=== PATIENT | female | born 1985 | race Caucasian/White ===

== ENCOUNTER 2016-07-12 14:52 | Emergency (ER) | payer MEDICAID | END 2016-07-12 17:05 | disposition home or self-care (01) | LOC: D.ER 14:52 | DX: H60.501 Unspecified acute noninfective otitis externa, right ear (principal); F41.9 Anxiety disorder, unspecified ==

== ENCOUNTER 2016-11-08 09:27 | Emergency (ER) | payer MEDICAID | END 2016-11-08 10:47 | disposition home or self-care (01) | LOC: D.ER 09:27 | DX: K04.7 Periapical abscess without sinus (principal); K02.9 Dental caries, unspecified; K08.89 Other specified disorders of teeth and supporting structures; F17.200 Nicotine dependence, unspecified, uncomplicated ==

== ENCOUNTER 2017-01-19 11:36 | Emergency (ER) | payer MEDICAID | END 2017-01-19 12:56 | disposition home or self-care (01) | LOC: D.ER 11:36 | DX: K04.7 Periapical abscess without sinus (principal); K08.89 Other specified disorders of teeth and supporting structures; F17.200 Nicotine dependence, unspecified, uncomplicated; R51 Headache ==

== ENCOUNTER 2017-06-13 15:30 | Emergency (ER) | payer MEDICAID | END 2017-06-13 16:42 | disposition home or self-care (01) | LOC: D.ER 15:30 | DX: K04.7 Periapical abscess without sinus (principal); K08.89 Other specified disorders of teeth and supporting structures; F17.200 Nicotine dependence, unspecified, uncomplicated ==

== ENCOUNTER 2018-01-29 14:48 | Emergency (ER) | payer MEDICAID ==
[~2018-01-29] VITALS: Ht 162.6 cm; Wt 100.0 kg
[2018-01-29 14:52] VITALS: Ht 162.6 cm; Wt 100.0 kg
[2018-01-29] MEDS ORDERED: PENICILLIN V P500 MG PO (15:29)
[2018-01-29] MEDS ORDERED: ULTRAM50 MG PO (15:31)
[2018-01-29 16:56] VITALS: BP 116/70
== END 2018-01-29 16:56 | disposition home or self-care (01) ==
LOC: D.ER 14:48
DX: K04.7 Periapical abscess without sinus (principal); K08.89 Other specified disorders of teeth and supporting structures; F17.200 Nicotine dependence, unspecified, uncomplicated

== ENCOUNTER 2018-02-01 08:54 | Emergency (ER) | payer MEDICAID ==
[~2018-02-01] VITALS: Ht 162.6 cm; Wt 102.3 kg
[~2018-02-01 08:54] MED LIST: PENICILLIN V P500 MG PO; ULTRAM50 MG PO
[2018-02-01 08:58] VITALS: Ht 162.6 cm; Wt 102.3 kg
[2018-02-01 09:21] LABS: APPEARANCE HAZY (CLEAR); BILIRUBIN NEGATIVE (NEGATIVE); COLOR YELLOW (YELLOW); GLUCOSE NEGATIVE (NEGATIVE); KETONE NEGATIVE (NEGATIVE); NITRITE NEGATIVE (NEGATIVE); PROTEIN NEGATIVE (NEGATIVE); SPECIFIC GRAVITY 1.025 (1.005-1.020); UROBILINOGEN NORMAL (NORMAL)
[2018-02-01 09:23] LABS: BACTERIA MODERATE /hpf (NONE SEEN); EPITHELIAL CELLS 0-5 /hpf (0-5); MUCUS >1+ /lpf (NONE SEEN); RED CELLS - URINE 0-5 /hpf (0-5); UDS - AMPHET NEGATIVE QUAL (NEGATIVE); UDS - BARB NEGATIVE QUAL (NEGATIVE); UDS - BENZO NEGATIVE QUAL (NEGATIVE); UDS - COCAINE NEGATIVE QUAL (NEGATIVE); UDS - OPIATE NEGATIVE QUAL (NEGATIVE); UDS - PCP NEGATIVE QUAL (NEGATIVE); UDS - THC NEGATIVE QUAL (NEGATIVE); WHITE CELLS - URINE 0-5 /hpf (0-5)
[2018-02-01 09:24] LABS: BASOPHILS 0.4 % (0-2); EOSINOPHILS 1.4 % (0-7); HEMATOCRIT 38.4 % (36.0-48.0); HEMOGLOBIN 12.4 g/dL (12-16); LYMPHOCYTES 25.6 % (15-50); MCH 26.7 pg (26.0-34.0); MCHC 32.3 g/dL (31.0-37.0); MCV 82.6 fL (80.0-100.0); MEAN PLATELET VOLUME 10.4 fL (7.4-10.4); MONOCYTES 5.3 % (2-11); NEUTROPHILS 67.3 % (40-80); PLATELET COUNT 190 10x3/uL (130-400); RBC 4.65 10x6/uL (4.00-5.40); RDW 13.5 % (11.5-14.5); WBC 4.9 10x3/uL (4.8-10.8)
[2018-02-01 09:46] LABS: ALBUMIN 3.4 g/dL (3.4-5.0); ALKALINE PHOSPHATASE 55 U/L (46-116); ALT (SGPT) 21 U/L (10-68); BILIRUBIN - TOTAL 0.24 mg/dL (0.2-1.3); CALC OSMOLALITY 281 mosm/kg (275-300); CALCIUM 8.2 mg/dL (8.5-10.1); CARBON DIOXIDE 28.7 mmol/L (21.0-32.0); CHLORIDE - SERUM 107 mmol/L (98-107); CREATININE - SERUM 0.7 mg/dL (0.6-1.3); GLUCOSE 105 mg/dL (74-106); POTASSIUM - SERUM 3.7 mmol/L (3.5-5.1); PROTEIN - SERUM 6.4 g/dL (6.4-8.2); SODIUM 142 mmol/L (136-145); UREA NITROGEN 9 mg/dL (7-18); eGFR NON AFRICAN AMERICAN > 90 mL/min (90-120)
[2018-02-01 09:51] LABS: HCG SERUM NEGATIVE (NEGATIVE)
[2018-02-01 11:19] VITALS: BP 132/86
== END 2018-02-01 11:20 ==
LOC: D.ER 08:54
PROVIDERS: Family Medicine
DX: R45.851 Suicidal ideations (principal); F31.9 Bipolar disorder, unspecified

== ENCOUNTER 2018-05-18 13:59 | Emergency (ER) | payer MEDICAID ==
[~2018-05-18] VITALS: Ht 162.6 cm; Wt 97.7 kg
[2018-05-18 14:06] VITALS: Ht 162.6 cm; Wt 97.7 kg
[2018-05-18] MEDS ORDERED: TORADOL10 MG PO (15:25)
[2018-05-18] MEDS ORDERED: CLEOCIN HCL300 MG PO (15:25)
[2018-05-18 17:00] VITALS: BP 147/78
== END 2018-05-18 17:00 | disposition home or self-care (01) ==
LOC: D.ER 13:59
DX: H92.01 Otalgia, right ear (principal); G43.909 Migraine, unspecified, not intractable, without status migrainosus; K08.89 Other specified disorders of teeth and supporting structures

== ENCOUNTER 2018-07-22 03:34 | Emergency (ER) | payer MEDICAID ==
[~2018-07-22] VITALS: Ht 162.6 cm; Wt 104.3 kg
[~2018-07-22 03:34] MED LIST changes: +CLEOCIN HCL300 MG PO; +TORADOL10 MG PO
[2018-07-22 03:44] VITALS: Ht 162.6 cm; Wt 104.3 kg
[2018-07-22 04:03] LABS: APPEARANCE HAZY (CLEAR); BILIRUBIN NEGATIVE (NEGATIVE); COLOR YELLOW (YELLOW); GLUCOSE NEGATIVE (NEGATIVE); KETONE NEGATIVE (NEGATIVE); NITRITE POSITIVE (NEGATIVE); PROTEIN 2+ mg/dL (NEGATIVE); SPECIFIC GRAVITY 1.015 (1.005-1.020); UROBILINOGEN NORMAL (NORMAL)
[2018-07-22 04:05] LABS: UDS - AMPHET NEGATIVE QUAL (NEGATIVE); UDS - BARB NEGATIVE QUAL (NEGATIVE); UDS - BENZO NEGATIVE QUAL (NEGATIVE); UDS - COCAINE NEGATIVE QUAL (NEGATIVE); UDS - OPIATE NEGATIVE QUAL (NEGATIVE); UDS - PCP NEGATIVE QUAL (NEGATIVE); UDS - THC NEGATIVE QUAL (NEGATIVE)
[2018-07-22 04:19] LABS: BASOPHILS 0.3 % (0-2); EOSINOPHILS 1.7 % (0-7); HEMOGLOBIN 12.2 g/dL (12-16); IMMATURE GRANULOCYTES 0.2 % (0-5); MCH 27.1 pg (26.0-34.0); MCHC 32.1 g/dL (31.0-37.0); MCV 84.4 fL (80.0-100.0); MEAN PLATELET VOLUME 9.5 fL (7.4-10.4); MONOCYTES 8.4 % (2-11); NEUTROPHILS 64.4 % (40-80); PLATELET COUNT 200 10x3/uL (130-400); RDW 13.4 % (11.5-14.5); WBC 5.7 10x3/uL (4.8-10.8)
[2018-07-22 04:19] LABS: BACTERIA MODERATE /hpf (NONE SEEN); EPITHELIAL CELLS 0-5 /hpf (0-5); RED CELLS - URINE 0-5 /hpf (0-5)
[2018-07-22 04:49] LABS: CALC OSMOLALITY 277 mosm/kg (275-300); CALCIUM 8.1 mg/dL (8.5-10.1); CARBON DIOXIDE 27.9 mmol/L (21.0-32.0); CHLORIDE - SERUM 102 mmol/L (98-107); CREATININE - SERUM 0.7 mg/dL (0.6-1.3); GLUCOSE 104 mg/dL (74-106); POTASSIUM - SERUM 3.5 mmol/L (3.5-5.1); SODIUM 140 mmol/L (136-145); THYROID STIMULATING HORMONE 1.02 uIU/mL (0.36-3.74); UREA NITROGEN 9 mg/dL (7-18); eGFR NON AFRICAN AMERICAN > 90 mL/min (90-120)
[2018-07-22 05:01] LABS: HCG SERUM NEGATIVE (NEGATIVE)
[2018-07-22 06:18] VITALS: BP 147/84
== END 2018-07-22 07:00 ==
LOC: D.ER 03:34
PROVIDERS: Family Medicine
DX: F32.9 Major depressive disorder, single episode, unspecified (principal); F41.9 Anxiety disorder, unspecified; A59.9 Trichomoniasis, unspecified; N39.0 Urinary tract infection, site not specified

== ENCOUNTER 2018-07-29 19:43 | Emergency (ER) | payer MEDICAID ==
[~2018-07-29] VITALS: Ht 162.6 cm; Wt 104.5 kg
[2018-07-29 19:46] VITALS: Ht 162.6 cm; Wt 104.5 kg
[2018-07-29] MEDS ORDERED: KLONOPIN1 MG PO (19:47)
[2018-07-29] MEDS ORDERED: SEROQUEL200 MG (19:47)
[2018-07-29] MEDS ORDERED: BUPROPION HCL150 M1 PO (19:47)
[2018-07-29 20:07] LABS: BASOPHILS 0.3 % (0-2); EOSINOPHILS 2.8 % (0-7); HEMOGLOBIN 11.9 g/dL (12-16); IMMATURE GRANULOCYTES 0.2 % (0-5); LYMPHOCYTES 23.5 % (15-50); MCH 26.8 pg (26.0-34.0); MCHC 32.2 g/dL (31.0-37.0); MCV 83.3 fL (80.0-100.0); MEAN PLATELET VOLUME 9.4 fL (7.4-10.4); MONOCYTES 7.6 % (2-11); NEUTROPHILS 65.6 % (40-80); PLATELET COUNT 202 10x3/uL (130-400); RBC 4.44 10x6/uL (4.00-5.40); RDW 13.5 % (11.5-14.5)
[2018-07-29 20:11] LABS: APPEARANCE CLEAR (CLEAR); BILIRUBIN NEGATIVE (NEGATIVE); COLOR YELLOW (YELLOW); GLUCOSE NEGATIVE (NEGATIVE); KETONE NEGATIVE (NEGATIVE); NITRITE POSITIVE (NEGATIVE); PROTEIN TRACE mg/dL (NEGATIVE); UROBILINOGEN NORMAL (NORMAL)
[2018-07-29 20:13] LABS: RED CELLS - URINE 0-5 /hpf (0-5)
[2018-07-29 20:14] LABS: BACTERIA MODERATE /hpf (NONE SEEN); EPITHELIAL CELLS 0-5 /hpf (0-5)
[2018-07-29 20:15] LABS: MUCUS <1+ /lpf (NONE SEEN)
[2018-07-29 20:22] LABS: ALBUMIN 3.2 g/dL (3.4-5.0); ALKALINE PHOSPHATASE 69 U/L (46-116); ALT (SGPT) 74 U/L (10-68); BILIRUBIN - TOTAL 0.05 mg/dL (0.2-1.3); CALC OSMOLALITY 278 mosm/kg (275-300); CALCIUM 7.6 mg/dL (8.5-10.1); CARBON DIOXIDE 23.7 mmol/L (21.0-32.0); CHLORIDE - SERUM 108 mmol/L (98-107); CREATININE - SERUM 0.7 mg/dL (0.6-1.3); GLUCOSE 80 mg/dL (74-106); PROTEIN - SERUM 6.2 g/dL (6.4-8.2); SODIUM 141 mmol/L (136-145); UREA NITROGEN 10 mg/dL (7-18); eGFR NON AFRICAN AMERICAN > 90 mL/min (90-120)
[2018-07-29 20:25] LABS: AMYLASE - SERUM 55 U/L (25-115); LIPASE 139 U/L (73-393); TROPONIN-I < 0.017 ng/mL (0.000-0.060)
[2018-07-29] MEDS ORDERED: KEFLEX500 MG PO (21:27)
[2018-07-29 22:10] VITALS: BP 135/65
== END 2018-07-29 22:10 | disposition home or self-care (01) ==
LOC: D.ER 19:43
PROVIDERS: Family Medicine
DX: A59.9 Trichomoniasis, unspecified (principal); N39.0 Urinary tract infection, site not specified

== ENCOUNTER 2018-09-15 15:49 | Emergency (ER) | payer MEDICAID ==
[2018-07-29 19:46] VITALS: BMI 39.5
[~2018-09-15 15:49] MED LIST changes: +BUPROPION HCL150 M1 PO; +KEFLEX500 MG PO; +KLONOPIN1 MG PO; +SEROQUEL200 MG
== END 2018-09-15 16:15 | disposition left against medical advice (07) ==
LOC: D.ER 15:49
DX: K08.89 Other specified disorders of teeth and supporting structures (principal)

== ENCOUNTER 2018-09-23 00:17 | Emergency (ER) | payer MEDICAID ==
[~2018-09-23] VITALS: Ht 162.6 cm; Wt 104.5 kg
[2018-09-23 00:25] VITALS: Ht 162.6 cm; Wt 104.5 kg
[2018-09-23] MEDS ORDERED: EFFEXOR50 MG (00:26)
[2018-09-23 01:06] LABS: BASOPHILS 0.3 % (0-2); EOSINOPHILS 2.4 % (0-7); HEMATOCRIT 40.2 % (36.0-48.0); HEMOGLOBIN 13.1 g/dL (12-16); IMMATURE GRANULOCYTES 0.2 % (0-5); LYMPHOCYTES 28.9 % (15-50); MCH 26.3 pg (26.0-34.0); MCHC 32.6 g/dL (31.0-37.0); MCV 80.6 fL (80.0-100.0); MEAN PLATELET VOLUME 9.8 fL (7.4-10.4); MONOCYTES 11.1 % (2-11); NEUTROPHILS 57.1 % (40-80); RBC 4.99 10x6/uL (4.00-5.40); RDW 14.1 % (11.5-14.5); WBC 6.2 10x3/uL (4.8-10.8)
[2018-09-23 01:18] LABS: PLATELET COUNT 246 10x3/uL (130-400)
[2018-09-23 01:20] LABS: HCG URINE NEGATIVE (NEGATIVE); UDS - AMPHET POSITIVE QUAL (NEGATIVE); UDS - BARB NEGATIVE QUAL (NEGATIVE); UDS - BENZO NEGATIVE QUAL (NEGATIVE); UDS - COCAINE NEGATIVE QUAL (NEGATIVE); UDS - OPIATE NEGATIVE QUAL (NEGATIVE); UDS - PCP NEGATIVE QUAL (NEGATIVE); UDS - THC NEGATIVE QUAL (NEGATIVE)
[2018-09-23 01:21] LABS: APPEARANCE HAZY (CLEAR); BILIRUBIN NEGATIVE (NEGATIVE); COLOR YELLOW (YELLOW); GLUCOSE NEGATIVE (NEGATIVE); KETONE NEGATIVE (NEGATIVE); NITRITE NEGATIVE (NEGATIVE); PROTEIN NEGATIVE (NEGATIVE); SPECIFIC GRAVITY 1.015 (1.005-1.020); UROBILINOGEN NORMAL (NORMAL)
[2018-09-23 01:23] LABS: ALBUMIN 4.1 g/dL (3.4-5.0); ALKALINE PHOSPHATASE 76 U/L (46-116); ALT (SGPT) 28 U/L (10-68); AMORPHOUS SEDIMENT <1+ /lpf (NONE SEEN); BACTERIA MODERATE /hpf (NONE SEEN); BILIRUBIN - TOTAL 0.43 mg/dL (0.2-1.3); CALC OSMOLALITY 270 mosm/kg (275-300); CALCIUM 8.8 mg/dL (8.5-10.1); CARBON DIOXIDE 25.3 mmol/L (21.0-32.0); CHLORIDE - SERUM 99 mmol/L (98-107); CREATININE - SERUM 0.8 mg/dL (0.6-1.3); EPITHELIAL CELLS 0-5 /hpf (0-5); GLUCOSE 119 mg/dL (74-106); GRANULAR CAST 0-5 /lpf (NONE SEEN); HYALINE CAST OCC /lpf (NONE SEEN); MAGNESIUM - SERUM 2.2 mg/dL (1.8-2.4); PROTEIN - SERUM 7.8 g/dL (6.4-8.2); RED CELLS - URINE OCC /hpf (0-5); SODIUM 135 mmol/L (136-145); UREA NITROGEN 13 mg/dL (7-18); WHITE CELLS - URINE 0-5 /hpf (0-5); eGFR NON AFRICAN AMERICAN 87 mL/min (90-120)
[2018-09-23 01:25] LABS: POTASSIUM - SERUM 2.8 mmol/L (3.5-5.1)
[2018-09-23 10:37] VITALS: BP 100/50
== END 2018-09-23 10:39 ==
LOC: D.ER 00:17
PROVIDERS: Family Medicine
DX: R45.851 Suicidal ideations (principal); F32.9 Major depressive disorder, single episode, unspecified; E87.6 Hypokalemia; F19.10 Other psychoactive substance abuse, uncomplicated

== ENCOUNTER 2019-04-22 12:44 | Emergency (ER) | payer MEDICAID ==
[~2019-04-22] VITALS: Ht 162.6 cm; Wt 95.5 kg
[~2019-04-22 12:44] MED LIST changes: +EFFEXOR50 MG
[2019-04-22 13:10] VITALS: Ht 162.6 cm; Wt 95.5 kg
[2019-04-22 13:44] LABS: BASOPHILS 0.3 % (0-2); EOSINOPHILS 2.8 % (0-7); HEMATOCRIT 35.6 % (36.0-48.0); HEMOGLOBIN 11.3 g/dL (12-16); IMMATURE GRANULOCYTES 0.2 % (0-5); LYMPHOCYTES 31.3 % (15-50); MCH 26.2 pg (26.0-34.0); MCHC 31.7 g/dL (31.0-37.0); MCV 82.4 fL (80.0-100.0); MEAN PLATELET VOLUME 9.4 fL (7.4-10.4); NEUTROPHILS 58.4 % (40-80); PLATELET COUNT 246 10x3/uL (130-400); RBC 4.32 10x6/uL (4.00-5.40); RDW 14.4 % (11.5-14.5); WBC 6.1 10x3/uL (4.8-10.8)
[2019-04-22 13:58] LABS: CALC OSMOLALITY 278 mosm/kg (275-300); CALCIUM 8.7 mg/dL (8.5-10.1); CARBON DIOXIDE 25.3 mmol/L (21.0-32.0); CHLORIDE - SERUM 103 mmol/L (98-107); CREATININE - SERUM 0.7 mg/dL (0.6-1.3); GLUCOSE 112 mg/dL (74-106); POTASSIUM - SERUM 3.3 mmol/L (3.5-5.1); SODIUM 139 mmol/L (136-145); UREA NITROGEN 13 mg/dL (7-18); eGFR NON AFRICAN AMERICAN > 90 mL/min (90-120)
[2019-04-22 14:03] LABS: ACETAMINOPHEN 21.9 ug/mL (10.0-30.0); ALBUMIN 3.3 g/dL (3.4-5.0); ALKALINE PHOSPHATASE 73 U/L (46-116); ALT (SGPT) 129 U/L (10-68); MAGNESIUM - SERUM 1.8 mg/dL (1.8-2.4); PROTEIN - SERUM 6.7 g/dL (6.4-8.2)
[2019-04-22 15:48] LABS: UDS - AMPHET POSITIVE QUAL (NEGATIVE); UDS - BARB NEGATIVE QUAL (NEGATIVE); UDS - BENZO POSITIVE QUAL (NEGATIVE); UDS - COCAINE NEGATIVE QUAL (NEGATIVE); UDS - OPIATE POSITIVE QUAL (NEGATIVE); UDS - PCP NEGATIVE QUAL (NEGATIVE); UDS - THC NEGATIVE QUAL (NEGATIVE)
[2019-04-22 15:51] LABS: APPEARANCE HAZY (CLEAR); BILIRUBIN NEGATIVE (NEGATIVE); COLOR YELLOW (YELLOW); GLUCOSE NEGATIVE (NEGATIVE); HCG URINE NEGATIVE (NEGATIVE); KETONE NEGATIVE (NEGATIVE); NITRITE POSITIVE (NEGATIVE); PROTEIN 1+ mg/dL (NEGATIVE)
[2019-04-22 15:52] LABS: WHITE CELLS - URINE 25-50 /hpf (NEGATIVE)
[2019-04-22 15:53] LABS: BACTERIA MANY /hpf (NEGATIVE); EPITHELIAL CELLS 0-5 /hpf (0-5); RED CELLS - URINE 0-5 /hpf (0-5)
[2019-04-23] MEDS ORDERED: OMNICEF300 MG PO (00:12)
[2019-04-23 01:57] VITALS: BP 138/73
== END 2019-04-23 03:13 ==
LOC: D.ER 12:44
PROVIDERS: Family Medicine
DX: R45.851 Suicidal ideations (principal); F23 Brief psychotic disorder; F32.9 Major depressive disorder, single episode, unspecified; E87.6 Hypokalemia; N39.0 Urinary tract infection, site not specified; F15.10 Other stimulant abuse, uncomplicated

== ENCOUNTER 2019-06-11 17:23 | Inpatient (IN) | payer OTHER ==
[~2019-06-11] VITALS: Ht 162.6 cm; Wt 133.7 kg
[~2019-06-11 17:23] MED LIST changes: +OMNICEF300 MG PO
[2019-06-11 17:57] LABS: UDS - AMPHET NEGATIVE QUAL (NEGATIVE); UDS - BARB NEGATIVE QUAL (NEGATIVE); UDS - BENZO NEGATIVE QUAL (NEGATIVE); UDS - COCAINE NEGATIVE QUAL (NEGATIVE); UDS - OPIATE NEGATIVE QUAL (NEGATIVE); UDS - PCP NEGATIVE QUAL (NEGATIVE); UDS - THC NEGATIVE QUAL (NEGATIVE)
[2019-06-11 18:00] LABS: APPEARANCE CLEAR (CLEAR); BILIRUBIN NEGATIVE (NEGATIVE); COLOR YELLOW (YELLOW); GLUCOSE NEGATIVE (NEGATIVE); KETONE NEGATIVE (NEGATIVE); NITRITE NEGATIVE (NEGATIVE); PROTEIN NEGATIVE (NEGATIVE); UROBILINOGEN NORMAL (NORMAL)
--- NOTE | 2019-06-11 18:05 | NUR ---
SPOKE WITH PABLITO WITH AR POISON CONTROL, RECCOMENDATIONS FOR CARDIAC MONITORING, AIRWAY MONITORING, SERIAL EKGS, ABG, VS MONITORING, EKG, LABS AND UDS. THE ABOVE RELAYED TO EDP, DR. TOMAS AND ADMITTING PHYSICIAN, DR. RINCON AT BEDSIDE.
[2019-06-11 18:07] LABS: BACTERIA MODERATE /hpf (NEGATIVE); EPITHELIAL CELLS 0-5 /hpf (0-5); RED CELLS - URINE OCC /hpf (0-5); WHITE CELLS - URINE 0-5 /hpf (NEGATIVE)
[2019-06-11 18:16] LABS: BASOPHILS 0.3 % (0-2); EOSINOPHILS 3.5 % (0-7); HEMOGLOBIN 11.2 g/dL (12-16); IMMATURE GRANULOCYTES 0.1 % (0-5); LYMPHOCYTES 23.3 % (15-50); MCH 26.3 pg (26.0-34.0); MCHC 31.1 g/dL (31.0-37.0); MCV 84.5 fL (80.0-100.0); MEAN PLATELET VOLUME 9.3 fL (7.4-10.4); MONOCYTES 8.7 % (2-11); NEUTROPHILS 64.1 % (40-80); PLATELET COUNT 206 10x3/uL (130-400); RBC 4.26 10x6/uL (4.00-5.40); RDW 16.1 % (11.5-14.5); WBC 7.4 10x3/uL (4.8-10.8)
[2019-06-11 18:34] LABS: CALC OSMOLALITY 274 mosm/kg (275-300); CALCIUM 8.5 mg/dL (8.5-10.1); CARBON DIOXIDE 25.1 mmol/L (21.0-32.0); CHLORIDE - SERUM 106 mmol/L (98-107); CREATININE - SERUM 0.7 mg/dL (0.6-1.3); GLUCOSE 112 mg/dL (74-106); POTASSIUM - SERUM 3.4 mmol/L (3.5-5.1); SODIUM 138 mmol/L (136-145); UREA NITROGEN 8 mg/dL (7-18); eGFR NON AFRICAN AMERICAN > 90 mL/min (90-120)
[2019-06-11 18:45] LABS: ALBUMIN 3.1 g/dL (3.4-5.0); ALKALINE PHOSPHATASE 82 U/L (30-120); ALT (SGPT) 49 U/L (10-68); BILIRUBIN - TOTAL 0.18 mg/dL (0.2-1.3); CKMB 1.4 U/L (0.0-3.6); CREATINE KINASE 108 UL (21-215); MAGNESIUM - SERUM 1.7 mg/dL (1.8-2.4); PROTEIN - SERUM 6.2 g/dL (6.4-8.2); TROPONIN-I < 0.017 ng/mL (0.000-0.060)
[2019-06-11 18:50] VITALS: BP 139/79
--- NOTE | 2019-06-11 18:51 | NUR ---
PT PRESENTS VIA EMS WITH REPORTED OVERDOSE. TIME OF OVERDOSE IS NOT KNOWN. IT IS UNKNOWN WHAT PATIENT TOOK. SUSPECTED TO HAVE TAKEN AN UNKNOWN AMOUNT OF BENZODIAZEPINES AND AMITRIPTYLINE. POISON CONTROL CONTACTED AND RECEOMMENDED THAT PATIENT BE MONITORED - CARDIAC MONITORING; AIRWAY; VS; ABG FOR ACIDOSIS; LIVER/RENAL FUNCTION; SERIAL EKG TO LOOK FOR QRS WIDENING - IF OCCURS SUGGESTED TO ADMINISTER SODIUM BICARB. MONITOR ETHANOL LEVEL AND ACETAMINOPHEN LEVEL. ALSO MONITOR PATIENT FOR HYPERTHERIA.
--- NOTE | 2019-06-11 18:56 | NUR ---
PT HAD 20 G IV TO RIGHT AC PLACED BY EMS. 20 G PIV PLACED IN RIGHT BREAST BY THIS NURSE IN ER.
--- NOTE | 2019-06-11 19:05 | NUR ---
REPORT GIVEN TO PUNEET KASPER USING SBAR
[2019-06-11 19:13] LABS: INR 0.91 (0.85-1.17); PROTIME 12.3 SECONDS (11.6-15.0)
[2019-06-11 19:14] LABS: APTT 27.6 SECONDS (22.8-39.4)
--- NOTE | 2019-06-11 19:25 | NUR ---
ATTEMPTED TO CALL REPORT TO ICU, STATES BED IS STILL DIRTY WILL CALL BACK TO GET REPORT WHEN BED IS CLEAN.
--- NOTE | 2019-06-11 19:35 | NUR ---
PT TO RADIOLOGY.
--- NOTE | 2019-06-11 20:00 | NUR ---
PT RETURNED FROM RADIOLOGY.
[2019-06-11 21:00] VITALS: BP 123/79
--- NOTE | 2019-06-11 21:00 | NUR ---
REPORT RECEIVED FROM MAJO TEIXEIRA. PT MOVED TO ROOM 21. VSS, WILL CONTINUE TO MONITOR.
[2019-06-11 21:45] VITALS: BP 102/78
--- NOTE | 2019-06-11 22:17 | NUR ---
PT LAYING SUPINE, RESTING WITH EYES CLOSED. RESPIRATIONS EVEN AND UNLABORED. ON MONITOR IN VIDEO MONITORED ROOM. WILL CONTINUE TO MONITOR.
[2019-06-11 22:45] VITALS: BP 123/78
[2019-06-11 23:00] VITALS: BP 121/81
--- NOTE | 2019-06-11 23:00 | NUR ---
PT ARROUSES TO VERBAL AND TACTILE STIMULATION. PT STATES "WHAT HAPPENED? I WAS AT [facility]." THIS NURSE ORIENTED PT TO PLACE, TIME AND SITUATION. PT DENIES TAKING MEDICATION. VSS.
--- NOTE | 2019-06-11 23:18 | NUR ---
RT PLACED PT ON 1L NC CONTINUOUS AT THIS TIME.
--- NOTE | 2019-06-11 23:32 | NUR ---
SITTER WITHIN LINE OF SIGHT
[2019-06-12] VITALS (19 sets, daily range): BP systolic 79–136; BP diastolic 41–84; Ht 162.6 cm; Wt 133.7 kg
--- NOTE | 2019-06-12 00:47 | NUR ---
ATTEMPTED TO USE BED SHE[place]IELD X2 ASSIST, PT REPORTS "I CANNOT PEE." PT REPOSITIONED IN BED.
--- NOTE | 2019-06-12 01:31 | NUR ---
PT RESTING WITH EYES CLOSED, RESPIRATIONS EVEN AND UNLABORED. NGT PATENT, CALL LIGHT WITH IN REACH, SITTER AT BEDSIDE. WILL CONTINUE TO MONITOR.
--- NOTE | 2019-06-12 03:20 | NUR ---
PT ASSISTED WITH BEDPAN, PT VOIDED 800 ML OF DARK YELLOW URINE. PT NOW AAOX4 AND ABLE TO ANSWER QUESTIONS APPORPRIATELY, TOOLS PROGRAMMER CALLED TO INFORM PT IS NOW ABLE TO ANSWER BEHAVIORAL HEALTH ASSESSMENT QUESTIONS. SITTER AT PT'S BEDSIDE. WILL CONTINUE TO MONITOR.
--- NOTE | 2019-06-12 03:47 | NUR ---
ATTEMPTED TO PERFORM ASSESSMENT. PT IS LETHARGIC HOWEVER AROUSABLE AND IS NOT ABLE TO MAINTAIN FOCUS. NURSE HAS TO ASK PATIENT THE SAME QUESTON REPEATEDLY AND PATIENT ATTENTION SPAN IS IMAPIRED AND IS HAVING DIFFICULTY COMPREHENDING. WILL ATTEMPT ASSESSMENT AFTER PATIENT IS MORE ALERT. WILL CONTINUE 1:1 SITTER PER PROTOCOL.
--- NOTE | 2019-06-12 04:02 | NUR ---
MENTAL HEALTH NURSE STATED TO THIS NURSE SHE WAS UNABLE TO OBTAIN BEHAVIORAL HEALTH ASSESSMENT D/T PT'S MENTATION AT THE TIME. RT IN ROOM, SITTER AT BEDSIDE. WILL CONTINUE TO MONITOR.
--- NOTE | 2019-06-12 05:09 | NUR ---
PT REPOSITIONED TO RIGHT SIDE, PT DENIES FURTHER NEEDS. RESPIRATIONS EVEN AND UNLABORED. NO SIGNS DISTRESS NOTED. SITTER AT BEDSIDE. WILL CONTINUE TO MONITOR.
--- NOTE | 2019-06-12 06:08 | NUR ---
PT ARROUSES TO VERBAL STIMULI AND IS ORIENTED TO SELF, PLACE AND SITUATION. PT REORIENTED TO DATE AND TIME, REPORTS "I TOOK MORE THAN THEY PRESCRIBED ME." PT DENIES CURRENT SI AND STATES, "I WAS NOT TRYING TO KILL MYSELF. I DO NOT KNOW WHY I DID IT." SHE C/O DRY MOUTH. LEMON GLYCERIN STICKS OFFERED, BUT PT REFUSED. WET WASHCLOTH USED TO CLEAN PT'S LIPS AND MOUTH.
[2019-06-12 06:27] LABS: BASOPHILS 0 % (0-2); EOSINOPHILS 3.5 % (0-7); HEMATOCRIT 36.9 % (36.0-48.0); HEMOGLOBIN 11.4 g/dL (12-16); IMMATURE GRANULOCYTES 0.2 % (0-5); LYMPHOCYTES 18.8 % (15-50); MCH 26.3 pg (26.0-34.0); MCHC 30.9 g/dL (31.0-37.0); MCV 85.2 fL (80.0-100.0); MEAN PLATELET VOLUME 9.6 fL (7.4-10.4); MONOCYTES 6.8 % (2-11); NEUTROPHILS 70.7 % (40-80); PLATELET COUNT 208 10x3/uL (130-400); RBC 4.33 10x6/uL (4.00-5.40)
[2019-06-12 06:30] LABS: WBC 5.5 10x3/uL (4.8-10.8)
[2019-06-12 07:01] LABS: ALBUMIN 2.9 g/dL (3.4-5.0); ALKALINE PHOSPHATASE 82 U/L (30-120); ALT (SGPT) 54 U/L (10-68); BILIRUBIN - TOTAL 0.25 mg/dL (0.2-1.3); CALC OSMOLALITY 281 mosm/kg (275-300); CALCIUM 7.9 mg/dL (8.5-10.1); CARBON DIOXIDE 27.4 mmol/L (21.0-32.0); CHLORIDE - SERUM 107 mmol/L (98-107); CREATININE - SERUM 0.7 mg/dL (0.6-1.3); GLUCOSE 123 mg/dL (74-106); MAGNESIUM - SERUM 1.8 mg/dL (1.8-2.4); PHOSPHOROUS 3.6 mg/dL (2.5-4.9); POTASSIUM - SERUM 3.9 mmol/L (3.5-5.1); SODIUM 142 mmol/L (136-145); UREA NITROGEN 7 mg/dL (7-18); eGFR NON AFRICAN AMERICAN > 90 mL/min (90-120)
--- NOTE | 2019-06-12 07:01 | NUR ---
PT CONT. TO REST SUPINE IN BED, SITTER AT BEDSIDE. NGTUBE IN PLACE. PT ON BOAT WASHER. VITAL SIGNS STABLE.
--- NOTE | 2019-06-12 08:14 | NUR ---
RECEIVED PT TO ROOM 2311 VIA BED ACCOMPANIED BY ER STAFF. VSS. PT DENIES ANY SUICIDAL IDEATION AND STATES "I DIDN'T MEAN TO TAKE ALL THOSE PILLS, I DIDN'T EVEN KNOW I DID IT." SITTER AT BEDSIDE, PT ORIENTED TO CALL LIGHT. BED LOWEST POSITION AND ROOM CLEAR OF ANYTHING THAT PT COULD HURT HERSELF WITH. WILL CONT TO MONITOR.
--- NOTE | 2019-06-12 09:00 | NUR ---
PT RESTING IN BED WITH EYES CLOSED. EASILY AROUSED. WILL CONT TO MONITOR.
--- NOTE | 2019-06-12 11:00 | NUR ---
REASSESSMENT COMPLETED PER FLOWSHEET, SEE FLOWSHEET FOR INFORMATION. VSS. NO ACUTE NEEDS OR DISTRESS NOTED AT THIS TIME. WILL CONT TO MONITOR.
--- NOTE | 2019-06-12 13:00 | NUR ---
NEW ORDERS RECEIVED. WILL CONT TO MONITOR.
--- NOTE | 2019-06-12 15:00 | NUR ---
I have reviewed this patient and I concur with the Shift Assessment completed by the Licensed Practical Nurse today this shift.
--- NOTE | 2019-06-12 15:49 | NUR ---
[facility] SSSR-FREQUENT SCREENER COMPLETED. PATIENT DENIES ANY SUICIDAL THOUGHTS OR INTENT. SHEHAS BEEN SLEEPING A LOTS TODAY. SHE ATE LUNCH AND JUST ASKED FOR A SNACK OF KIRIT CRACKERS AND PEANUT BUTTER.
--- NOTE | 2019-06-12 16:48 | NUR ---
PT ALERT AND ORIENTED, UP WITHOUT ASSIST, ARRIVED VIA WHEELCHAIR TO ROOM. CL INR EACH, SRX2. SITTER AT BEDSIDE. CL IN REACH, SRX.2
--- NOTE | 2019-06-12 17:07 | NUR ---
COMPLETIONS ENGINEER ALOUD HER TO MAKE ONE PHONE CALL TO HER WITH ROOM PHONE TO TELL HIM HER LOCATION, PT BEGAN IMMEDIATELY YELLING AT HIM, STATING "SHE HAS TO GO! SHE TOOK MY MEDS!" AFTER A LENGTHY ARGUMENT, SULMA TOOK PHONE FROM ROOM, NOW AT THE DESK. PT THEN CALLED ME IN THERE AND REQUESTED ALL HER HOME MEDICATIONS BE RESTARTED NOW, THAT SHE WAS NOT SUICIDAL AND HAD BEEN ON SUBOXONE FOR YEARS, AND WAS DESPERATELY IN NEED FOR IT SOON SHE WAS STARTING TO FEEL SICK. SPOKE TO DR. MENDOSA AND HE STATED HE WILL NOT BE RESTARTING ANY OF HER MEDICAITON SINCE SHE WAS AN O.D. WILL INFORM PT, DO NOT EXPECT HER TO TAKE IT WELL.
--- NOTE | 2019-06-12 19:30 | NUR ---
REPORT RECEIVED, BEDSIDE SHIFT REPORT COMPLETE. PT UP IN BED RR EVEN AND UNLABORED. NO S/SX OF DISTRESS OBSERVED AT THIS TIME. SITTER PRESENT AT BEDSIDE. CALL LIGHT IN REACH. WILL CTM.
--- NOTE | 2019-06-13 01:22 | NUR ---
PATIENT IN ROOM 2111. PATIENT DENIES BEING SUICIDIAL AND DENIES EVER HAVING BEEN SUICIDIAL. PATIENT EXPLAINS THAT SHE TOOK TOO MANY PILLS ACCIDENTALLY AND THAT SHE WASN'T TRYING TO COMMIT SUICIDE.
[2019-06-13 04:59] VITALS: BP 127/70
[2019-06-13 05:05] LABS: BASOPHILS 0.2 % (0-2); EOSINOPHILS 4.3 % (0-7); HEMATOCRIT 32.8 % (36.0-48.0); IMMATURE GRANULOCYTES 0.2 % (0-5); LYMPHOCYTES 33.1 % (15-50); MCHC 30.5 g/dL (31.0-37.0); MCV 85.2 fL (80.0-100.0); MEAN PLATELET VOLUME 9.3 fL (7.4-10.4); NEUTROPHILS 54.2 % (40-80); PLATELET COUNT 193 10x3/uL (130-400); RBC 3.85 10x6/uL (4.00-5.40); RDW 16.2 % (11.5-14.5); WBC 4.2 10x3/uL (4.8-10.8)
[2019-06-13 05:36] LABS: CALC OSMOLALITY 276 mosm/kg (275-300); CALCIUM 7.6 mg/dL (8.5-10.1); CARBON DIOXIDE 28.3 mmol/L (21.0-32.0); CHLORIDE - SERUM 106 mmol/L (98-107); CREATININE - SERUM 0.7 mg/dL (0.6-1.3); GLUCOSE 114 mg/dL (74-106); MAGNESIUM - SERUM 1.8 mg/dL (1.8-2.4); PHOSPHOROUS 2.8 mg/dL (2.5-4.9); POTASSIUM - SERUM 3.4 mmol/L (3.5-5.1); SODIUM 140 mmol/L (136-145); eGFR NON AFRICAN AMERICAN > 90 mL/min (90-120)
[2019-06-13 05:38] LABS: UREA NITROGEN 5 mg/dL (7-18)
--- NOTE | 2019-06-13 05:48 | NUR ---
PT RESTING QUIELTY DURING THE NIGHT, NO VOICED C/O OR CONCERNS. SITTER AT BEDSIDE. WILL CTM.
--- NOTE | 2019-06-13 07:29 | NUR ---
PT AWAKE AND ORIENTED, SITTER AT BEDSIDE. PT STATES REPEATEDLY SHE DOES NOT WANT TO GO TO [facility] AND DID NOT INTENTNIONALLY ATTEMPT SUICIDE YESTERDAY, THAT SHE WAS UNDER THE INFLUANCE WHEN SHE SAID THAT AND SHE WOULD NEVER DO THAT. STATES SHE'S EPISCOPAL AND SELFISH AND WANTS TO LIVE FOR HER FAMILY AND WOULD NOT ATTEMPT SUICIDE. STATES IT WAS AN ACCIDNETAL OVER DOSE. EJ THOMPSON, SRX2. WILL REPORT TO THE
--- NOTE | 2019-06-13 09:17 | CN ---
PATIENT NAME:KRYSTLE CHANG MEDICAL RECORD: [id number] : 83 LOCATION:D. D.2112 ADMIT DATE: 06/12/19 ACCOUNT: [id number] CONSULTING PHYSICIAN: MARIZA THURSTON MD REFERRING PHYSICIAN: MONIKA RINCON MD DATE OF CONSULTATION: 06/12/2019 IDENTIFYING DATA: The patient is 33 years old and she presented to the Emergency Room with the chief complaint of overdose. She apparently had taken an overdose of amitriptyline and another substance that was unknown. She had indicated that it was a benzodiazepine, but her urine drug screen was negative for that substance. The patient was subsequently admitted to the intensive care unit for observation and treatment. She is with a sitter. On interview, she is awake, alert and cooperative. She tells me she has no recollection of the events that precipitated this hospitalization. She endorses a lot of depressive symptoms, but denies that she wants to hurt herself. She denies that she would seek to harm others. She denies psychotic symptoms. Her memory, concentration, and abstraction abilities are intact or only minimally impaired. When informed that given the circumstances, she is going to have to go to inpatient psychiatric care, she becomes argumentative and tells me that she was not trying to kill herself and that she only came to the Emergency Room because she was confused. This does not match what she had told me earlier about not having any recollections of these events. Additionally, the patient has been to our Emergency Room multiple times for suicidal ideations and in fact she was only recently less than a month ago released from [facility] for an inpatient stay. ASSESSMENT: 1. Status post overdose of a tricyclic antidepressant. 2. Probable borderline personality disorder. 3. Major depression versus bipolar disorder. PLAN: The patient has a psychiatric history that includes hospitalizations and suicide attempts. She presented to the Emergency Room stating that she had taken an overdose of amitriptyline and that is documented by the Emergency Room physician. Given the overall circumstances of her history and presentation along with the interview, it is my opinion that she should be transferred to acute inpatient psychiatric care once medically stabilized. This hospitalization should occur voluntarily or involuntarily if necessary. She should be with a sitter and confined to the hospital until medically stabilized and that transfer can be arranged. TRANSINT:[id number] Voice Confirmation ID: [id number] DOCUMENT ID: [id number] MARIZA THURSTON MD at 0917 CC: [id number] DICTATION DATE: 06/12/19 1122 TEST ENGINE EVALUATOR: 06/12/19 1150 ADM IN [place] [id number] [place] [id number]
[2019-06-13 09:50] VITALS: BP 93/54
--- NOTE | 2019-06-13 11:41 | NUR ---
PT CALLED ME INTO ROOM, PT STATES SHE'S VERY UNCOMFORTABLE AND CAN NOT OBTAIN GOOD SLEEP. STATES SHE FEELS SWEATY, JUMP AND GENERALLY UNWELL AND SHE BELIEVES ITS FROM HER DETOXING FROM SUBOXONE WHICH SHE'S BEEN ON FOR SEVERAL YEARS. PT IS AGAIN ADAMENT SHE DOES NOT WANT TO GO TO [facility]. REUQESTS TYLENOL AND BENADRYL FOR HEADACHE AND STUFFY NOSE. CAN ADMIN TYLENOL BUT WILL HAVE TO ASK ABOUT ANY ALLERGY MEDICATION. CL INR EACH, SRX2, SITTER ATBEDSIDE.
[2019-06-13 14:15] VITALS: BP 130/57
--- NOTE | 2019-06-13 14:16 | NUR ---
PT AWAKE AND ORIENTED, UNDERSTANDS SHE HAS TO WAIT IUNTIL TOMORROW MORNING BEFORE LEAVING ANYWEHRE. NO COMPLAINTS/CONCERNS, ALL QUESTIONS ANSWERED TO THE BEST OF MY ABILITY. SITTER AT BEDSIDE. CL INR EACH, SRX2.
--- NOTE | 2019-06-13 17:12 | NUR ---
PT IS UPSET THE DRYenny DID NOT SPEAK TO HER WHEN HE CAME IN THE ROOM (PT WAS RESTING COMFORTABLY WHEN HE ENTERED). PT STATES SHE'S BEEN TAKING LITHIUM FOR A WHILE AND FEELS THOUGH NOT HAVING IT IS MAKING HER LEGS SWELL UNCOMFROTABLY. PT STATES THAT SHE IS HAVING WITHDRAWLS AND CAN NOT SLEEP AND NEEDS HER MEDICATION. CALLED DR. MENDOSA, HE STATED THAT PER DR. THURSTON WE ARE NOT RESTARTING HER PSYCH MEDICATION. PT IS UNHAPPY. SITTER AT BEDSIDE. CL IN REACH, SRX2.
--- NOTE | 2019-06-13 17:19 | NUR ---
I have reviewed this patient and I concur with the Shift Assessment completed by the Licensed Practical Nurse today this shift.
[2019-06-13 18:34] VITALS: BP 115/48
--- NOTE | 2019-06-13 19:04 | NUR ---
PT STATES SHE'S OK WITH TRANSFERING, BUT SHE WOULD PREFER [facility] OR [facility]. PT WAS VOLUNTARY.
--- NOTE | 2019-06-13 19:05 | NUR ---
SPOKE TO ARACELI COX AFTER SPEAKING TO DR. MENDOSA, SHE STATED THAT SHE WOULD FOLLOW DR. ROJAS RECCOMENDATIONS. DID ALLOW PT TO HAVE MELATONIN FOR SLEEP TONIGHT, ORDERED FOR 2099.
--- NOTE | 2019-06-13 19:30 | NUR ---
REPROT RECEIVED, PT CARE ASSUMED. PT UP IN ROOM PACING. SITTER REMAINS AT BEDSIDE. DENIES NEEDS AT THIS TIME. CALL LIGHT IN REACH WILL CTM.
[2019-06-13 20:00] VITALS: BP 122/62
--- NOTE | 2019-06-14 00:08 | NUR ---
PT RESTING, NO C/O OR CONCERNS. 1:1 SITTER AT BEDSIDE. WILL CTM.
[2019-06-14 04:00] VITALS: BP 106/56
[2019-06-14 05:00] LABS: BASOPHILS 0.2 % (0-2); HEMATOCRIT 32.2 % (36.0-48.0); HEMOGLOBIN 9.9 g/dL (12-16); LYMPHOCYTES 34.8 % (15-50); MCHC 30.7 g/dL (31.0-37.0); MCV 84.5 fL (80.0-100.0); MEAN PLATELET VOLUME 9.4 fL (7.4-10.4); MONOCYTES 8.8 % (2-11); NEUTROPHILS 52.2 % (40-80); PLATELET COUNT 198 10x3/uL (130-400); RBC 3.81 10x6/uL (4.00-5.40); RDW 15.9 % (11.5-14.5); WBC 4.2 10x3/uL (4.8-10.8)
[2019-06-14 05:14] LABS: CALC OSMOLALITY 283 mosm/kg (275-300); CALCIUM 7.6 mg/dL (8.5-10.1); CARBON DIOXIDE 28.8 mmol/L (21.0-32.0); CHLORIDE - SERUM 109 mmol/L (98-107); CREATININE - SERUM 0.8 mg/dL (0.6-1.3); GLUCOSE 110 mg/dL (74-106); MAGNESIUM - SERUM 1.8 mg/dL (1.8-2.4); PHOSPHOROUS 3.2 mg/dL (2.5-4.9); POTASSIUM - SERUM 3.5 mmol/L (3.5-5.1); SODIUM 143 mmol/L (136-145); eGFR NON AFRICAN AMERICAN 87 mL/min (90-120)
[2019-06-14 05:15] LABS: UREA NITROGEN 8 mg/dL (7-18)
--- NOTE | 2019-06-14 07:16 | NUR ---
PT AWAKE AND ORIENTED, SITTER AT BEDSIDE. DISTRESSED OVER MEDICATION NOT BEING RESTARTED. AWARE AND WILLING TO GO TO PSYCH FACILITY TODAY IF IPLACEMNT IS AVALIABLE. ALL QUESTIONS ANSWRED TO THE BEST OF MY ABILITY. EJ VELÁSQUEZCH,SRX2.
[2019-06-14 09:54] VITALS: BP 124/70
--- NOTE | 2019-06-14 09:57 | NUR ---
PT AWAKE AND ORIENTED, C/O HEADACHE. WAITING ON PLACEMENT. SITTER AT BEDSIDE. CL INR EACH,S RX.2
[2019-06-14 13:00] VITALS: BP 121/55
--- NOTE | 2019-06-14 14:51 | MORECARE ---
CASE MANAGEMENT DISCHARGE SUMMARY PATIENT: KRYSTLE CHANG UNIT: [id number] ADM DATE: 06/12/19 AGE: 33 : 84 SEX: F ROOM/BED: D.2112 AUTHOR: DENNY MILIAN PHYSICIAN: REFERRING PHYSICIAN: MONIKA RINCON MD DATE OF SERVICE: 06/14/19 Discharge Plan Patient Name: KRYSTLE CHANG [facility] [facility] 1985 Planned Disposition: Inpatient Psych Facility Anticipated Discharge Date: 06/14/19 Discharge Date: Expected LOS: 2 Initial Reviewer: [email or web address] Initial Review Date: 06/11/2019 Generated: 06/14/19 3:51 pm External Providers External Provider: [facility] Next Contact Date: 06/14/2019 Service Request Date: Service Type: Resolution: Reviewer: Comments: Patient Name: KRYSTLE CHANG Page [phone] at 1451 All edits/amendments must be made on the electronic document DICTATION DATE: 06/14/19 1451 FURNACE MECHANIC HELPER: KENDRA 06/14/19 1451 RPT#: [id number] DC DATE: STATUS: ADM IN [facility] [address] [place] [address] END OF REPORT
--- NOTE | 2019-06-14 15:08 | MORECARE ---
CASE MANAGEMENT DISCHARGE SUMMARY PATIENT: KRYSTLE CHANG UNIT: [id number] ADM DATE: 06/12/19 AGE: 33 : 84 SEX: F ROOM/BED: D.[facility]2 AUTHOR: DENNY MILIAN PHYSICIAN: REFERRING PHYSICIAN: MONIKA RINCON MD DATE OF SERVICE: 06/14/19 Discharge Plan Patient Name: KRYSTLE CHANG [facility] [facility] 1985 Planned Disposition: Inpatient Psych Facility Anticipated Discharge Date: 06/14/19 Discharge Date: Expected LOS: 2 Initial Reviewer: [email or web address] Initial Review Date: 06/11/2019 Generated: 06/14/19 4:08 pm DCPIA - Discharge Planning Initial Assessment Updated by [email or web address]: Sylvester Barone on 06/14/19 3:06 pm * Is the patient Alert and Oriented? Yes * How many steps to enter\exit or inside your home? NONE * PCP [facility] * [facility] * Preadmission Environment Home with Family * ADLs Independent * Equipment None * Other Equipment NO MEDICAL EQUIPMENT PROVIDER PREFERENCE * List name and contact numbers for known caregivers / representatives who currently or will assist patient after discharge: EMI CHANG, * Verbal permission to speak to the caregivers and representatives has been obtained from the patient. N/A * Community resources currently utilized Other * Please name any agencies selected above. [facility], [facility]; [facility] * Additional services required to return to the preadmission environment? No * Can the patient safely return to the preadmission environment? Yes * Has this patient been hospitalized within the prior 30 days at any hospital? No Last DP export: 06/14/19 1:51 p Patient Name: KRYSTLE CHANG Page 10543 at 1508 All edits/amendments must be made on the electronic document DICTATION DATE: 06/14/19 1508 CALLISTHENICS INSTRUCTOR: KENDRA 06/14/19 1508 RPT#: [id number] DC DATE: STATUS: ADM IN [facility] [address] [place] [place] [address] END OF REPORT
[2019-06-14 15:28] LABS: HCG URINE NEGATIVE (NEGATIVE)
--- NOTE | 2019-06-14 15:28 | MORECARE ---
CASE MANAGEMENT DISCHARGE SUMMARY PATIENT: KRYSTLE CHANG UNIT: [id number] ADM DATE: 06/12/19 AGE: 33 : 84 SEX: F ROOM/BED: D.0612 AUTHOR: RUKHSANA,DOC PHYSICIAN: REFERRING PHYSICIAN: MONIKA RINCON MD DATE OF SERVICE: 06/14/19 Discharge Plan Patient Name: KRYSTLE CHANG Facility: [facility]:[place] : 1985 Planned Disposition: Inpatient Psych Facility Anticipated Discharge Date: 06/14/19 Discharge Date: Expected LOS: 2 Initial Reviewer: [email or web address] Initial Review Date: 06/11/2019 Generated: 06/14/19 4:27 pm DCP- Discharge Planning Updated by [email or web address]: Sylvester Barone on 06/14/19 2:[address] Patient Name: KRYSTLE CHANG Admission Status: ER Accout number: [id number] Admission Date: 06-12-2019 : 1985 Admission Diagnosis: Attending: SERGEY, Current LOS: 2 Anticipated DC Date: 06-14-2019 Planned Disposition: Inpatient Psych Facility Primary Insurance: [employer] INS EXCHANGE PLANNED EXTERNAL PROVIDER: [facility] Discharge Planning Comments: CM SPOKE TO DR. MENDOSA IN CARE TEAM MEETING WHO INFORMED CM THAT PT IS STABLE TO DISCHARGE. CM MET WITH PT IN ROOM TO DISCUSS DISCHARGE PLANNING AND NEEDS. PT REPORTS LIVING AT HOME INDEPENDENTLY WITH HER SPOUSE AND FOUR SMALL CHILDREN. PT HAS NO MEDICAL EQUIPMENT AND NO OUTSIDE SERVICES ASSISTING IN THE HOME. CM DISCUSSED INPATIENT PSYCHIATRIC PLACEMENT. PT STATES SHE ONLY SAID SHE WANTED TO KILL HERSELF BECAUSE SHE THOUGHT SHE WAS GOING TO GET INTO TROUBLE FOR TAKING TOO MUCH OF HER SUBOXONE AND COULD GO TO SNF. CM EXPLAINED THAT ALL THREATS OF SUCICIDE ARE TAKEN SERIOUSLY AND THAT PT DID REPORTEDLY OVERDOSE ON PRESCRIPTION MEDICATIONS. PT REPORTS UNDERSTANDING AND WILL VOLUNTARILY GO FOR INPATIENT PSYCHIATRIC STABALIZATION. PT REPORTS SHE JUST GOT OUT OF [facility] 30 DAY RESIDENTIAL PROGRAM AND WAS ON INTENSIVE OUTPATIENT FOLLOW UP. PT ALSO HAS BEEN TO [facility] AND [facility] OUTPATIENT IN THE PAST YEAR. PT REPORTS RECENT PLACEMENT AT [facility] AND WANTS TO GO THERE IF POSSIBLE, BUT WILL CONSENT TO PLACEMENT ANYWHERE SO SHE CAN "GET HOME TO MY BABIES." CM CALLED [facility]SFER CENTER, [phone], SPOKE TO DAVINA WHO TOOK REFERRAL INFORMATION. CM FAXED REFERRAL TO [facility]ER [facility] AT [phone]. CM WAITING ON INPATIENT PSYCHIATRIC PLACEMENT TO FIRST ACCEPTING FACILITY. Clinical Nursing Assistant: Sylvester Barone DCPIA - Discharge Planning Initial Assessment Updated by [email or web address]: Sylvester Barone on 06/14/19 3:06 pm * Is the patient Alert and Oriented? Yes * How many steps to enter\\exit or inside your home? NONE * PCP [facility] * [facility] * Preadmission Environment Home with Family * ADLs Independent * Equipment None * Other Equipment NO MEDICAL EQUIPMENT PROVIDER PREFERENCE * List name and contact numbers for known caregivers / representatives who currently or will assist patient after discharge: EMI CHANG, * Verbal permission to speak to the caregivers and representatives has been obtained from the patient. N/A * Community resources currently utilized Other * Please name any agencies selected above. OUTPATIENT DRUG REHAB SERVICES, [facility] AND [facility]; [facility] * Additional services required to return to the preadmission environment? No * Can the patient safely return to the preadmission environment? Yes * Has this patient been hospitalized within the prior 30 days at any hospital? No Last DP export: 06/14/19 2:08 p Patient Name: KRYSTLE CHANG Page [phone] at 1528 All edits/amendments must be made on the electronic document DICTATION DATE: 06/14/191527 ACROBATIC RIGGER: KENDRA 06/14/191527 RPT#: [id number] DC DATE: STATUS: ADM IN [facility] [address] [place] [address] END OF REPORT
[2019-06-14 16:51] VITALS: BP 120/67
--- NOTE | 2019-06-14 17:30 | NUR ---
PATIENT DENIES ATTEMPTING SUICIDE OR ANY INTENTIONS OF DOING ANYTHING. SHE IS AWAITING A TRANSFER TO [facility]. SHE IS MORE ALERT AND FOCUSED TO HER SITUATIOBN TODAY. WILL CONTINUE 1:1 SITTER PROTOCOL.
--- NOTE | 2019-06-14 18:23 | NUR ---
I have reviewed this patient and I concur with the Shift Assessment completed by the Licensed Practical Nurse today this shift.
--- NOTE | 2019-06-14 19:20 | NUR ---
REPORT RECEIVED, WILL CONTINUE POC. PATIENT AAOX4, SITTING UP IN BED. SITTER AT BEDSIDE. NO S/S OF DISTRESS OBSERVED, RR EVEN AND UNLABORED ON ROOM AIR. PIV TO RT AC, SL ANOTHER TO RT BREAST, SL WELL. PATIENT DENIES NEEDS AT THIS TIME. SHE DID ASK ABOUT HER HOME MEDS, LISTED THE ONES THAT HAVE BEEN RESTARTED. CL IN REACH, BED LOCKED AND LOWERED. WILL CTM.
[2019-06-14 20:00] VITALS: BP 123/62
[2019-06-14 23:00] VITALS: BP 122/78
--- NOTE | 2019-06-15 01:18 | NUR ---
[facility] CALLED, QUESTIONS ANSWERED. INFORMED THAT A CALLBACK WILL BE MADE SHORTLY WITH THE ROOM NUMBER FOR [facility].
--- NOTE | 2019-06-15 01:34 | NUR ---
RECEIVED CALL FROM [facility]. PATIENT WILL BE TRANSFERED TO [place] [id number] EMERY IS THE ACCEPTING DOCTOR. CONTACT INFO FOR NURSE TO NURSE REPORT [phone]. AWAITING CALL BACK FOR TRANSPORTATION INFO.
--- NOTE | 2019-06-15 01:41 | NUR ---
RECEIVED CALL FROM [facility]SFER C[facility], INFORMED THAT [facility] WILL BE HERE IN 30MIN TO TRANSFER PATIENT TO [facility]. BOTTLER HELPER CALL, NICK BASURTO INFORMED.
[2019-06-15] MEDS ORDERED: MACRODANTIN100 MG PO (01:52)
[2019-06-15] MEDS ORDERED: EFFEXOR50 MG PO (01:54)
[2019-06-15] MEDS ORDERED: DEPAKOTE500 MG PO (01:54)
[2019-06-15] MEDS ORDERED: KLONOPIN0.5 MG PO (01:55)
--- NOTE | 2019-06-15 02:28 | NUR ---
REPORT CALLED TO MAJO MELENDREZ @ [facility]. IV'S REMOVED, DISCHARGE PAPERS SIGNED, COPIES MADE, DISCHARGE INSTRUCTIONS GIVEN TO EMS. EMS LEAVING WITH PATIENT NOW.
--- NOTE | 2019-06-15 07:48 | MORECARE ---
CASE MANAGEMENT DISCHARGE SUMMARY PATIENT: KRYSTLE CHANG UNIT: [id number] ADM DATE: 06/12/19 AGE: 33 : [birth year] SEX: F ROOM/BED: D.2112 AUTHOR: RUKHSANA,DOC PHYSICIAN: REFERRING PHYSICIAN: MONIKA RINCON MD DATE OF SERVICE: 06/15/19 Discharge Plan Patient Name: KRYSTLE CHANG Facility: [facility]:[place] : 1985 Planned Disposition: Inpatient Psych Facility Anticipated Discharge Date: 06/15/19 Discharge Date: 06/15/2019 Expected LOS: 3 Initial Reviewer: [email or web address] Initial Review Date: 06/11/2019 Generated: 06/15/19 8:48 am Comments DCP- Discharge Planning Updated by [email or web address]: Sylvester Barone on 06/15/19 6:[address] Patient Name: KYRSTLE CHANG Encounter No: [id number] : 1985 Primary Insurance: [employer] Anticipated DC Date: 06-15-2019 Planned Disposition: Inpatient Psych Facility External Planned Provider: [facility] DCP follow-up note: CM REVIEWED CHART, PT WAS TRANSFERED EARLY THIS MORNING TO [address] EMERY ACCEPTED. Sylvester Barone, CASE MANAGEMENT DCP- Discharge Planning Updated by [email or web address]: Sylvester Barone on 06/14/19 2:[address] Patient Name: KRYSTLE CHANG Admission Status: ER Accout number: [id number] Admission Date: 06-12-2019 : 1985 Admission Diagnosis: Attending: SERGEY, Current LOS: 2 Anticipated DC Date: 06-14-2019 Planned Disposition: Inpatient Psych Facility Primary Insurance: [employer] PLANNED EXTERNAL PROVIDER: [facility] Discharge Planning Comments: CM SPOKE TO DR. MENDOSA IN CARE TEAM MEETING WHO INFORMED CM THAT PT IS STABLE TO DISCHARGE. CM MET WITH PT IN ROOM TO DISCUSS DISCHARGE PLANNING AND NEEDS. PT REPORTS LIVING AT HOME INDEPENDENTLY WITH HER SPOUSE AND FOUR SMALL CHILDREN. PT HAS NO MEDICAL EQUIPMENT AND NO OUTSIDE SERVICES ASSISTING IN THE HOME. CM DISCUSSED INPATIENT PSYCHIATRIC PLACEMENT. PT STATES SHE ONLY SAID SHE WANTED TO KILL HERSELF BECAUSE SHE THOUGHT SHE WAS GOING TO GET INTO TROUBLE FOR TAKING TOO MUCH OF HER SUBOXONE AND COULD GO TO DETENTION. CM EXPLAINED THAT ALL THREATS OF SUCICIDE ARE TAKEN SERIOUSLY AND THAT PT DID REPORTEDLY OVERDOSE ON PRESCRIPTION MEDICATIONS. PT REPORTS UNDERSTANDING AND WILL VOLUNTARILY GO FOR INPATIENT PSYCHIATRIC STABALIZATION. PT REPORTS SHE JUST GOT OUT OF [facility] 30 DAY RESIDENTIAL PROGRAM AND WAS ON INTENSIVE OUTPATIENT FOLLOW UP. PT ALSO HAS BEEN TO [facility] AND [facility] OUTPATIENT IN THE PAST YEAR. PT REPORTS RECENT PLACEMENT AT [facility] IN [place] AND WANTS TO GO THERE IF POSSIBLE, BUT WILL CONSENT TO PLACEMENT ANYWHERE SO SHE CAN "GET HOME TO MY BABIES." CM CALLED [facility], [phone], SPOKE TO DAVINA WHO TOOK REFERRAL INFORMATION. CM FAXED REFERRAL TO [facility] AT [phone]. CM WAITING ON INPATIENT PSYCHIATRIC PLACEMENT TO FIRST ACCEPTING FACILITY. Backpackers Manager: Sylvester Barone DCPIA - Discharge Planning Initial Assessment Updated by [email or web address]: Sylvester Barone on 06/14/19 3:06 pm * Is the patient Alert and Oriented? Yes * How many steps to enter\\exit or inside your home? NONE * PCP DR. BIB CORRIGAN, [facility] IN CL[facility]IC * Pharmacy [facility] * Preadmission Environment Home with Family * ADLs Independent * Equipment None * Other Equipment NO MEDICAL EQUIPMENT PROVIDER PREFERENCE * List name and contact numbers for known caregivers / representatives who currently or will assist patient after discharge: EMI CHANG, * Verbal permission to speak to the caregivers and representatives has been obtained from the patient. N/A * Community resources currently utilized Other * Please name any agencies selected above. [facility], [facility]; [facility] * Additional services required to return to the preadmission environment? No * Can the patient safely return to the preadmission environment? Yes * Has this patient been hospitalized within the prior 30 days at any hospital? No Last DP export: 06/14/19 2:28 p Patient Name: KRYSTLE CHANG Page [id number] at 0748 All edits/amendments must be made on the electronic document DICTATION DATE: 06/15/1949 PET HANDLER: DM 06/15/19 0748 RPT#: [id number] DC DATE:06/15/19 STATUS: DIS IN [facility] [address] [place] [address] END OF REPORT
--- NOTE | 2019-06-15 12:23 | PN ---
PATIENT:KRYSTLE CHANG MEDICAL RECORD: [id number] LOCATION:D. D.211 ADMISSION DATE: 06/12/19 PROGRESS NOTE DATE OF SERVICE: 06/14/2019 SUBJECTIVE: The patient's case was discussed and the chart was reviewed. OBJECTIVE: The patient continues to have a depressed mood and is stating that she does not want to hurt herself. ASSESSMENT: Major depression versus bipolar disorder. PLAN: The patient needs to be transferred to acute inpatient psychiatric care once medically stabilized. I will start her on medications in the interim. TRANSINT:[id number] Voice Confirmation ID: [id number] DOCUMENT ID: [id number] MARIZA THURSTON MD at 1223 CC: [id number] DICTATION DATE: 06/14/19 1551 JEWELER APPRENTICE: 06/14/19 2016 DIS IN 06/15/19 [place] [id number] [place] [id number]
== END 2019-06-15 03:01 | disposition short-term general hospital (02) | DRG 917 ==
LOC: OBSVTIME → D.ER 17:23 → D.ICU 18:36 → OBSVTIME 19:12 → D.ICU 06-12 07:59 → D.M2 06-12 07:59
PROVIDERS: Family Medicine; Internal Medicine Nephrology; ADMIT Family Medicine; ATTEND Family Medicine
DX: T43.012A Poisoning by tricyclic antidepressants, intentional self-harm, initial encounter (principal); G92 Toxic encephalopathy; R45.851 Suicidal ideations; N39.0 Urinary tract infection, site not specified; Z68.43 Body mass index [BMI] 50.0-59.9, adult; Y92.009 Unspecified place in unspecified non-institutional (private) residence as the place of occurrence of the external cause; D64.9 Anemia, unspecified; E87.6 Hypokalemia; E66.01 Morbid (severe) obesity due to excess calories; F60.3 Borderline personality disorder; F31.9 Bipolar disorder, unspecified

== ENCOUNTER 2019-08-29 18:54 | Emergency (ER) | payer OTHER ==
[~2019-08-29] VITALS: Ht 162.6 cm; Wt 118.2 kg
[~2019-08-29 18:54] MED LIST changes: +DEPAKOTE500 MG PO; +EFFEXOR50 MG PO; +KLONOPIN0.5 MG PO; +MACRODANTIN100 MG PO
[2019-08-29 18:58] VITALS: Ht 162.6 cm; Wt 118.2 kg
[2019-08-29] MEDS ORDERED: CYMBALTA60 MG PO (19:01)
[2019-08-29] MEDS ORDERED: CLEOCIN HCL300 MG PO (19:29)
[2019-08-29] MEDS ORDERED: IBUPROFEN800 MG PO (19:30)
[2019-08-29 19:47] VITALS: BP 129/74
== END 2019-08-29 19:48 | disposition home or self-care (01) ==
LOC: D.ER 18:54
DX: K08.89 Other specified disorders of teeth and supporting structures (principal)

== ENCOUNTER 2019-11-03 17:17 | Emergency (ER) | payer OTHER ==
[~2019-11-03] VITALS: Ht 266.7 cm; Wt 72.7 kg
[~2019-11-03 17:17] MED LIST changes: +CYMBALTA60 MG PO; +IBUPROFEN800 MG PO
[2019-11-03 17:30] VITALS: Ht 266.7 cm; Wt 72.7 kg
[2019-11-03 18:53] LABS: BASOPHILS 0.4 % (0-2); EOSINOPHILS 2.6 % (0-7); HEMATOCRIT 38.8 % (36.0-48.0); HEMOGLOBIN 12.2 g/dL (12-16); IMMATURE GRANULOCYTES 0.2 % (0-5); LYMPHOCYTES 34.1 % (15-50); MCH 26.2 pg (26.0-34.0); MCHC 31.4 g/dL (31.0-37.0); MCV 83.4 fL (80.0-100.0); MONOCYTES 8.2 % (2-11); NEUTROPHILS 54.5 % (40-80); PLATELET COUNT 279 10x3/uL (130-400); RBC 4.65 10x6/uL (4.00-5.40); RDW 14.7 % (11.5-14.5)
[2019-11-03 19:08] LABS: CALC OSMOLALITY 279 mosm/kg (275-300); CALCIUM 8.6 mg/dL (8.5-10.1); CARBON DIOXIDE 32.2 mmol/L (21.0-32.0); CHLORIDE - SERUM 103 mmol/L (98-107); CREATININE - SERUM 0.8 mg/dL (0.6-1.3); POTASSIUM - SERUM 3.3 mmol/L (3.5-5.1); SODIUM 139 mmol/L (136-145); UREA NITROGEN 9 mg/dL (7-18); eGFR NON AFRICAN AMERICAN 86 mL/min (90-120)
[2019-11-03 19:10] LABS: GLUCOSE 154 mg/dL (74-106)
[2019-11-03 19:13] LABS: ALBUMIN 3.4 g/dL (3.4-5.0); ALKALINE PHOSPHATASE 85 U/L (30-120); ALT (SGPT) 82 U/L (10-68); BILIRUBIN - TOTAL 0.13 mg/dL (0.2-1.3); PROTEIN - SERUM 6.7 g/dL (6.4-8.2)
[2019-11-03] MEDS ORDERED: FLORASTOR250 MG PO (20:28)
[2019-11-03] MEDS ORDERED: CLINDAMYCIN HC300 MG PO (20:28)
[2019-11-03 20:59] VITALS: BP 124/94
== END 2019-11-03 20:59 | disposition home or self-care (01) ==
LOC: D.ER 17:17
PROVIDERS: Family Medicine
DX: N61.1 Abscess of the breast and nipple (principal); F32.9 Major depressive disorder, single episode, unspecified

== ENCOUNTER → 2020-01-31 | Emergency (ER) | payer OTHER ==
[~2020-01-31] VITALS: Ht 266.7 cm; Wt 111.4 kg
[~2020-01-31] MED LIST changes: +CLINDAMYCIN HC300 MG PO; +FLORASTOR250 MG PO; +MAXALT MLT10 MG/TAB PO
[2020-01-31 18:34] VITALS: Ht 266.7 cm; Wt 111.4 kg
== END | disposition home or self-care (01) ==
LOC: D.ER 18:05
DX: G43.909 Migraine, unspecified, not intractable, without status migrainosus (principal)

== ENCOUNTER 2020-07-27 15:39 | Emergency (ER) | payer OTHER ==
[~2020-07-27] VITALS: Ht 266.7 cm; Wt 113.6 kg
[2020-07-27 15:52] VITALS: Ht 266.7 cm; Wt 113.6 kg
--- NOTE | 2020-07-27 16:37 | NUR ---
Per suicide assessment, Patient is crying out in pain and crying and does not want to complete the assessment. she states she had had thoughts of hurting herself in the past with possible an overdose. She " did Meth last night and has an infection to her arm". She has been to local facilities in the past and "was clean" but she has relapsed. She has taken meds in the past but has not follow up with a counselor. Spoke with Dr. Callejas, ED charge nurse and MD and placement and follow up to follow.
[2020-07-27 17:08] LABS: BASOPHILS 0.1 % (0-2); EOSINOPHILS 0.1 % (0-7); HEMATOCRIT 39.2 % (36.0-48.0); HEMOGLOBIN 12.6 g/dL (12-16); IMMATURE GRANULOCYTES 0.2 % (0-5); LYMPHOCYTE ABS# 1.51 10x3/uL (1.18-3.74); LYMPHOCYTES 10.6 % (15-50); MCH 26.1 pg (26.0-34.0); MCHC 32.1 g/dL (31.0-37.0); MCV 81.3 fL (80.0-100.0); MEAN PLATELET VOLUME 9.2 fL (7.4-10.4); MONOCYTES 6.5 % (2-11); NEUTROPHIL ABS# 11.81 10x3/uL (1.56-6.13); NEUTROPHILS 82.5 % (40-80); PLATELET COUNT 230 10x3/uL (130-400); RBC 4.82 10x6/uL (4.00-5.40); RDW 13.6 % (11.5-14.5); WBC 14.3 10x3/uL (4.8-10.8)
[2020-07-27 17:15] LABS: CALC OSMOLALITY 272 mosm/kg (275-300); CALCIUM 8.6 mg/dL (8.5-10.1); CARBON DIOXIDE 27.1 mmol/L (21.0-32.0); CHLORIDE - SERUM 98 mmol/L (98-107); CREATININE - SERUM 0.9 mg/dL (0.6-1.3); GLUCOSE 142 mg/dL (74-106); POTASSIUM - SERUM 3.3 mmol/L (3.5-5.1); SODIUM 134 mmol/L (136-145); UREA NITROGEN 21 mg/dL (7-18); eGFR NON AFRICAN AMERICAN 75 mL/min (90-120)
[2020-07-27 17:22] LABS: ALBUMIN 3.8 g/dL (3.4-5.0); ALKALINE PHOSPHATASE 81 U/L (30-120); ALT (SGPT) 27 U/L (10-68); BILIRUBIN - TOTAL 0.39 mg/dL (0.2-1.3); MAGNESIUM - SERUM 1.9 mg/dL (1.8-2.4); PROTEIN - SERUM 7.4 g/dL (6.4-8.2)
[2020-07-27 18:36] LABS: HCG URINE NEGATIVE (NEGATIVE); SARS-CoV-2 ANTIGEN NEGATIVE- SARS-COV-2 (NEGATIVE)
[2020-07-27 18:37] LABS: BILIRUBIN NEGATIVE (NEGATIVE); KETONE NEGATIVE (NEGATIVE); NITRITE POSITIVE (NEGATIVE); UROBILINOGEN NORMAL mg/dL (< 2)
[2020-07-27 18:39] LABS: UDS - AMPHET POSITIVE QUAL (NEGATIVE); UDS - BARB NEGATIVE QUAL (NEGATIVE); UDS - BENZO NEGATIVE QUAL (NEGATIVE); UDS - COCAINE NEGATIVE QUAL (NEGATIVE); UDS - OPIATE NEGATIVE QUAL (NEGATIVE); UDS - PCP NEGATIVE QUAL (NEGATIVE); UDS - THC NEGATIVE QUAL (NEGATIVE)
[2020-07-27 18:40] LABS: BACTERIA MODERATE HPF (NONE SEEN); SQUAMOUS EPITHELIAL 0-5 HPF (0-4)
[2020-07-27] MEDS ORDERED: CLINDAMYCIN HC300 MG PO (19:09)
[2020-07-27] MEDS ORDERED: MACROBID100 MG PO (19:09)
[2020-07-27 22:30] VITALS: BP 162/86
== END 2020-07-27 22:30 ==
LOC: D.ER 15:39
PROVIDERS: Emergency Medicine
DX: R45.851 Suicidal ideations (principal); R45.1 Restlessness and agitation; F31.9 Bipolar disorder, unspecified; L03.114 Cellulitis of left upper limb; I10 Essential (primary) hypertension; Z72.0 Tobacco use

== ENCOUNTER 2020-08-27 19:09 | Emergency (ER) | payer OTHER ==
[~2020-08-27] VITALS: Ht 165.1 cm; Wt 118.2 kg
[~2020-08-27 19:09] MED LIST changes: +MACROBID100 MG PO
[2020-08-27 19:22] VITALS: Ht 165.1 cm; Wt 118.2 kg
[2020-08-27 19:47] LABS: BASOPHILS 0.3 % (0-2); EOSINOPHILS 0.7 % (0-7); HEMATOCRIT 41.2 % (36.0-48.0); HEMOGLOBIN 13.2 g/dL (12-16); IMMATURE GRANULOCYTES 0.1 % (0-5); LYMPHOCYTE ABS# 1.41 10x3/uL (1.18-3.74); MCH 26.2 pg (26.0-34.0); MCV 81.9 fL (80.0-100.0); MEAN PLATELET VOLUME 9.8 fL (7.4-10.4); MONOCYTES 4.4 % (2-11); NEUTROPHIL ABS# 5.61 10x3/uL (1.56-6.13); NEUTROPHILS 75.5 % (40-80); PLATELET COUNT 276 10x3/uL (130-400); RBC 5.03 10x6/uL (4.00-5.40); RDW 15.2 % (11.5-14.5); WBC 7.4 10x3/uL (4.8-10.8)
[2020-08-27 19:55] LABS: CALC OSMOLALITY 277 mosm/kg (275-300); CALCIUM 9.1 mg/dL (8.5-10.1); CARBON DIOXIDE 24.5 mmol/L (21.0-32.0); CHLORIDE - SERUM 104 mmol/L (98-107); GLUCOSE 120 mg/dL (74-106); POTASSIUM - SERUM 3.2 mmol/L (3.5-5.1); SODIUM 140 mmol/L (136-145); UREA NITROGEN 8 mg/dL (7-18); eGFR NON AFRICAN AMERICAN 66 mL/min (90-120)
[2020-08-27 20:01] LABS: ACETAMINOPHEN < 10.0 ug/mL (10.0-30.0); ALBUMIN 4.3 g/dL (3.4-5.0); ALKALINE PHOSPHATASE 76 U/L (30-120); ALT (SGPT) 34 U/L (10-68); BILIRUBIN - TOTAL 0.26 mg/dL (0.2-1.3); PROTEIN - SERUM 7.8 g/dL (6.4-8.2)
[2020-08-27 20:45] LABS: BILIRUBIN NEGATIVE (NEGATIVE); KETONE NEGATIVE (NEGATIVE); NITRITE POSITIVE (NEGATIVE); UROBILINOGEN NORMAL mg/dL (< 2)
[2020-08-27 20:47] LABS: BACTERIA MANY HPF (NONE SEEN); SQUAMOUS EPITHELIAL 3 HPF (0-4); WHITE CELLS - URINE 0-5 HPF (0-4)
[2020-08-27 20:50] LABS: HCG URINE NEGATIVE (NEGATIVE)
[2020-08-27 20:54] LABS: UDS - AMPHET POSITIVE QUAL (NEGATIVE); UDS - BARB NEGATIVE QUAL (NEGATIVE); UDS - BENZO NEGATIVE QUAL (NEGATIVE); UDS - COCAINE NEGATIVE QUAL (NEGATIVE); UDS - OPIATE NEGATIVE QUAL (NEGATIVE); UDS - PCP NEGATIVE QUAL (NEGATIVE); UDS - THC POSITIVE QUAL (NEGATIVE)
[2020-08-27] MEDS ORDERED: MACROBID100 MG PO (21:46)
[2020-08-28 04:01] VITALS: BP 131/66
[2020-08-28 05:06] LABS: SARS-CoV-2 ANTIGEN NEGATIVE- SARS-COV-2 (NEGATIVE)
== END 2020-08-28 10:27 ==
LOC: D.ER 19:09
PROVIDERS: Family Medicine
DX: F23 Brief psychotic disorder (principal); E87.6 Hypokalemia; N39.0 Urinary tract infection, site not specified; F31.9 Bipolar disorder, unspecified; I10 Essential (primary) hypertension; Z72.0 Tobacco use; R41.0 Disorientation, unspecified